=== PATIENT | female | born 1995 | race African-American/Black ===

== ENCOUNTER 2024-11-22 01:25 | Emergency (ER) | payer MEDICAID ==
[~2024-11-22] VITALS: Ht 165.1 cm; Wt 130.0 kg
[2024-11-22 02:47] LABS: BASOPHILS % 0.3 % (0.0-2.0); CLARITY URINE CLEAR (CLEAR); COLOR URINE YELLOW (YELLOW); GLUCOSE URINE NEGATIVE (NEGATIVE); HEMATOCRIT. 40.3 % (36.0-48.0); HEMOGLOBIN. 13.5 g/dL (12.0-16.0); KETONES URINE 1+ (NEGATIVE); LEUKOCYTE ESTERASE URINE NEGATIVE (NEGATIVE); LYMPHOCYTES % 17.8 % (20.0-50.0); MEAN CORPUSCULAR HEMOGLOBIN 31.6 pg (28.0-32.0); MEAN CORPUSCULAR HGB CONC 33.6 g/dL (31.0-37.0); MEAN CORPUSCULAR VOLUME 93.9 fL (81.0-99.0); MEAN PLATELET VOLUME 10.2 fl (7.4-10.4); MONOCYTES % 7.8 % (2.0-8.0); NEUTROPHILS % 74.1 % (40.0-76.0); NITRITE URINE NEGATIVE (NEGATIVE); OCCULT BLOOD URINE NEGATIVE (NEGATIVE); PH URINE 6.5 (4.5-8.0); PLATELET 213 x1000/uL (130-400); PROTEIN URINE NEGATIVE (NEGATIVE); RED BLOOD CELL COUNT 4.29 mill/uL (4.2-5.4); RED CELL DISTRIBUTION WIDTH 13.1 % (11.6-14.6); SPECIFIC GRAVITY URINE 1.003 (1.005-1.030); UROBILINOGEN URINE 0.2 E.U./dL (0.2-1.0); WHITE BLOOD COUNT 9.6 x1000/uL (4.5-11.0)
[2024-11-22 02:53] LABS: CHLORIDE 104 mEq/L (98-107); POTASSIUM 3.4 mEq/L (3.5-5.1); SODIUM 137 mEq/L (136-145)
[2024-11-22 02:54] LABS: CALCIUM 9.4 mg/dL (8.7-10.4); CARBON DIOXIDE 22 mEq/L (21-32)
[2024-11-22 02:59] LABS: CREATININE 0.9 mg/dL (0.6-1.0); GLUCOSE 123 mg/dL (70-105); HCG SCREEN NEGATIVE; UREA NITROGEN BLOOD 7 mg/dL (9-23)
[2024-11-22 03:00] LABS: *AMPHETAMINES SCREEN URINE NEGATIVE (NEGATIVE); *BARBITURATES SCREEN URINE NEGATIVE (NEGATIVE); *BENZODIAZEPINES SCREEN URINE NEGATIVE (NEGATIVE); *COCAINE SCREEN URINE NEGATIVE (NEGATIVE); CANNABINOID URINE SCREEN PRESUMPTIVE POSITIVE (NEGATIVE); ECSTASY MDMA SCREEN URINE NEGATIVE (NEGATIVE); METHADONE URINE SCREEN NEGATIVE (NEGATIVE); OPIATES URINE SCREEN NEGATIVE (NEGATIVE); PHENCYCLIDINE URINE SCREEN NEGATIVE (NEGATIVE)
[2024-11-22 03:01] LABS: ACETAMINOPHEN < 2 ug/mL (10-30)
[2024-11-22] MEDS: LORAZEPAM 2MG/ML INJ IM ONE (03:21)
[2024-11-22] MEDS: DIPHENHYDRAMINE 50MG/ML VIAL IM ONE (03:22)
[2024-11-22 03:33] LABS: ETHANOL BLOOD < 10 mg/dL (<10)
[2024-11-22] MEDS: HALOPERIDOL LACTATE 5MG/ML VIAL IM ONE (04:54)
[2024-11-22 20:00] VITALS: O2SAT 99
[2024-11-23] MEDS: QUETIAPINE FUMARATE 50MG TABLET PO SCH (18:59)
[2024-11-23] MEDS ORDERED: QUETIAPINE FUMARATE 50MG TABLET PO SCH (21:00)
[2024-11-24 17:14] VITALS: BP 153/87; PULSE 79; RESP 16; TEMP 36.7; O2SAT 99
== END 2024-11-24 17:25 ==
LOC: ER 01:25
DX: R44.0 Auditory hallucinations (principal); E87.6 Hypokalemia; F12.90 Cannabis use, unspecified, uncomplicated; F31.9 Bipolar disorder, unspecified; Z20.822 Contact with and (suspected) exposure to COVID-19
CPT/HCPCS: 80305; 80048; 81003; 80307; 80329; 80320; 84703; 85025; 36415; 93005; 96372; 99285; 87426; J1200; J1630; J2060; Z7610 ×4; G0480